=== PATIENT | female | born 1980 | race Caucasian/White ===

== ENCOUNTER 2018-06-23 13:03 | Emergency (ER) | payer SELFPAY ==
[~2018-06-23] VITALS: Ht 147.3 cm; Wt 67.3 kg
[2018-06-23] MEDS ORDERED: PREN-155 PO (13:16)
[2018-06-23 14:57] LABS: BASOPHILS % (AUTO) 0.6 % (0.0-2.0); EOSINOPHILS % (AUTO) 1.4 % (1.0-6.0); HEMATOCRIT 37.5 % (36-46); HEMOGLOBIN 11.7 g/dL (12.0-16.0); LYMPHOCYTES # (AUTO) 2.5 K/uL (1.0-4.8); LYMPHOCYTES % (AUTO) 27.5 % (22.0-44.0); MEAN CORPUSCULAR HEMOGLOBIN 20.7 pg (26.0-34.0); MEAN CORPUSCULAR HGB CONC 31.2 G/dL (31.0-37.0); MEAN CORPUSCULAR VOLUME 66 fL (80-100); MONOCYTES # (AUTO) 0.6 K/uL (0.1-1.0); MONOCYTES % (AUTO) 6.3 % (2.0-9.0); NEUTROPHILS # (AUTO) 5.8 K/uL (1.8-7.7); NEUTROPHILS % (AUTO) 64.2 % (40.0-70.0); PLATELET COUNT (AUTO) 300 K/uL (150-450); RED BLOOD CELL COUNT(AUTO) 5.64 MIL/uL (4.00-5.20); RED CELL DISTRIBUTION WIDTH 16.2 % (11.5-14.5)
[2018-06-23 15:15] LABS: ANION GAP 10 mmol/L (8-16); CALCIUM, TOTAL 9.1 mg/dL (8.8-10.5); CARBON DIOXIDE 25 mmol/L (22-29); CHLORIDE 99 mmol/L (98-107); CREATININE 0.64 mg/dL (0.60-1.30); GLOMERULAR FILTR. RATE CALC > 60 mL/min (>60); GLUCOSE,RANDOM 284 mg/dL (70-110); POTASSIUM 3.6 mmol/L (3.5-5.1); SODIUM SERUM 134 mmol/L (136-145); UREA NITROGEN, BLOOD 9 mg/dL (7-18)
[2018-06-23 15:44] LABS: ALANINE AMINOTRANSFERASE 30 U/L (12-78); ALBUMIN 3.8 g/dL (3.4-5.0); ALKALINE PHOSPHATASE 92 U/L (46-116); ASPARTATE AMINOTRANSFERASE 16 U/L (15-37); BILIRUBIN,TOTAL 0.2 mg/dL (0.1-1.0); HCG,QUANTITATIVE 33139 mIU/mL (0-6); TOTAL PROTEIN, SERUM 7.9 g/dL (6.4-8.2)
[2018-06-23 17:40] VITALS: BP 111/75
== END 2018-06-23 17:40 | disposition home or self-care (01) ==
LOC: EMS 13:04
DX: O20.0 Threatened abortion (principal); Z3A.01 Less than 8 weeks gestation of pregnancy
CPT/HCPCS: 76801; 76817; 86901

== ENCOUNTER 2022-04-30 16:46 | Emergency (ER) | payer MEDICAID ==
[~2022-04-30] VITALS: Ht 152.4 cm; Wt 65.9 kg
[2022-04-30] VITALS (7 sets, daily range): BP systolic 103–137; BP diastolic 64–81
[~2022-04-30 16:46] MED LIST: PREN-155 PO
[2022-04-30] MEDS ORDERED: LEVORA PO (17:04)
[2022-04-30] MEDS ORDERED: METF-1211 PO (17:04)
[2022-04-30] MEDS ORDERED: ASCO500T20 PO (17:04)
[2022-04-30] MEDS ORDERED: SITA100 PO (17:04)
[2022-04-30] MEDS ORDERED: FERR-82 PO ×2 (17:04)
[2022-04-30 18:18] LABS: BASOPHILS % (AUTO) 0.6 % (0.0-2.0); EOSINOPHILS % (AUTO) 2.3 % (1.0-6.0); HEMATOCRIT 27.3 % (36-46); HEMOGLOBIN 7.8 g/dL (12.0-16.0); LYMPHOCYTES # (AUTO) 2.2 K/uL (1.0-4.8); LYMPHOCYTES % (AUTO) 31.2 % (22.0-44.0); MEAN CORPUSCULAR HEMOGLOBIN 15.7 pg (26.0-34.0); MEAN CORPUSCULAR HGB CONC 28.4 G/dL (31.0-37.0); MEAN CORPUSCULAR VOLUME 55 fL (80-100); MONOCYTES # (AUTO) 0.5 K/uL (0.1-1.0); MONOCYTES % (AUTO) 7.4 % (2.0-9.0); NEUTROPHILS # (AUTO) 4.1 K/uL (1.8-7.7); NEUTROPHILS % (AUTO) 58.5 % (40.0-70.0); PLATELET COUNT (AUTO) 297 K/uL (150-450); RED BLOOD CELL COUNT(AUTO) 4.93 MIL/uL (4.00-5.20); RED CELL DISTRIBUTION WIDTH 18.6 % (11.5-14.5)
[2022-04-30 18:27] LABS: ANION GAP 6 mmol/L (8-16); CALCIUM, TOTAL 8.8 mg/dL (8.8-10.5); CARBON DIOXIDE 26 mmol/L (22-29); CHLORIDE 102 mmol/L (98-107); CREATININE 0.46 mg/dL (0.60-1.30); GLUCOSE,RANDOM 213 mg/dL (70-110); POTASSIUM 3.2 mmol/L (3.5-5.1); SODIUM SERUM 134 mmol/L (136-145); UREA NITROGEN, BLOOD 9 mg/dL (7-18)
[2022-04-30 18:32] LABS: ALANINE AMINOTRANSFERASE 14 U/L (12-78); ALBUMIN 3.5 g/dL (3.4-5.0); ALKALINE PHOSPHATASE 76 U/L (46-116); ASPARTATE AMINOTRANSFERASE 9 U/L (15-37); BILIRUBIN,TOTAL 0.3 mg/dL (0.1-1.0); TOTAL PROTEIN, SERUM 7.9 g/dL (6.4-8.2)
[2022-04-30 18:33] LABS: GLOMERULAR FILTR. RATE CALC > 60 mL/min (>60)
[2022-04-30 18:36] LABS: B-TYPE NATRIURETIC PEPTIDE 10 pg/mL (0-100)
[2022-04-30 18:42] LABS: PLATELET MORPHOLOGY COMMENT LARGE PLTS PRESENT
[2022-04-30 22:49] LABS: BASOPHILS % (AUTO) 0.5 % (0.0-2.0); EOSINOPHILS % (AUTO) 2.5 % (1.0-6.0); HEMATOCRIT 28.2 % (36-46); HEMOGLOBIN 8.2 g/dL (12.0-16.0); LYMPHOCYTES # (AUTO) 2.4 K/uL (1.0-4.8); LYMPHOCYTES % (AUTO) 33.5 % (22.0-44.0); MEAN CORPUSCULAR HEMOGLOBIN 17.1 pg (26.0-34.0); MEAN CORPUSCULAR HGB CONC 29.2 G/dL (31.0-37.0); MEAN CORPUSCULAR VOLUME 59 fL (80-100); MONOCYTES # (AUTO) 0.6 K/uL (0.1-1.0); MONOCYTES % (AUTO) 8.8 % (2.0-9.0); NEUTROPHILS # (AUTO) 3.9 K/uL (1.8-7.7); NEUTROPHILS % (AUTO) 54.7 % (40.0-70.0); PLATELET COUNT (AUTO) 275 K/uL (150-450); RED BLOOD CELL COUNT(AUTO) 4.81 MIL/uL (4.00-5.20); RED CELL DISTRIBUTION WIDTH 19.3 % (11.5-14.5)
[2022-04-30 23:07] LABS: PLATELET MORPHOLOGY COMMENT LARGE PLTS PRESENT
== END 2022-04-30 23:07 | disposition home or self-care (01) ==
LOC: EMS 16:58
DX: E87.71 Transfusion associated circulatory overload (principal); E11.9 Type 2 diabetes mellitus without complications; E87.6 Hypokalemia; R53.83 Other fatigue; D64.9 Anemia, unspecified
CPT/HCPCS: 99291; 36430; 80053; 82962; 83880; 84484; 85025; 85610; 85730; 86850; 86900; 86901; 86923; 71045; 93005; 36415; P9016

== ENCOUNTER 2022-09-03 08:00 | Emergency (ER) | payer MEDICAID ==
[~2022-09-03] VITALS: Ht 160 cm; Wt 65.5 kg
[~2022-09-03 08:00] MED LIST changes: +ASCO500T20 PO; +FERR-82 PO; +LEVORA PO; +METF-1211 PO; -PREN-155 PO; +SITA100 PO
[2022-09-03 08:10] VITALS: BP 136/65
[2022-09-03 09:38] LABS: BASOPHILS % (AUTO) 0.6 % (0.0-2.0); EOSINOPHILS % (AUTO) 1.6 % (1.0-6.0); HEMATOCRIT 39.6 % (36-46); HEMOGLOBIN 12.7 g/dL (12.0-16.0); LYMPHOCYTES # (AUTO) 1.6 K/uL (1.0-4.8); LYMPHOCYTES % (AUTO) 25.7 % (22.0-44.0); MEAN CORPUSCULAR HEMOGLOBIN 23.7 pg (26.0-34.0); MEAN CORPUSCULAR HGB CONC 32.1 G/dL (31.0-37.0); MEAN CORPUSCULAR VOLUME 74 fL (80-100); MONOCYTES # (AUTO) 0.4 K/uL (0.1-1.0); MONOCYTES % (AUTO) 5.9 % (2.0-9.0); NEUTROPHILS # (AUTO) 4.1 K/uL (1.8-7.7); NEUTROPHILS % (AUTO) 66.2 % (40.0-70.0); PLATELET COUNT (AUTO) 279 K/uL (150-450); RED BLOOD CELL COUNT(AUTO) 5.37 MIL/uL (4.00-5.20); RED CELL DISTRIBUTION WIDTH 16.7 % (11.5-14.5)
[2022-09-03 09:46] LABS: ANION GAP 8 mmol/L (8-16); CALCIUM, TOTAL 9.1 mg/dL (8.8-10.5); CARBON DIOXIDE 26 mmol/L (22-29); CHLORIDE 102 mmol/L (98-107); CREATININE 0.64 mg/dL (0.60-1.30); GLOMERULAR FILTR. RATE CALC > 60 mL/min (>60); GLUCOSE,RANDOM 203 mg/dL (70-110); POTASSIUM 3.7 mmol/L (3.5-5.1); SODIUM SERUM 136 mmol/L (136-145); UREA NITROGEN, BLOOD 16 mg/dL (7-18)
[2022-09-03 09:59] LABS: ALANINE AMINOTRANSFERASE 20 U/L (12-78); ALKALINE PHOSPHATASE 94 U/L (46-116); ASPARTATE AMINOTRANSFERASE 15 U/L (15-37); BILIRUBIN,TOTAL 0.3 mg/dL (0.1-1.0); HCG,QUANTITATIVE 2 mIU/mL (0-6); TOTAL PROTEIN, SERUM 8.2 g/dL (6.4-8.2)
== END 2022-09-03 14:33 | disposition home or self-care (01) ==
LOC: EMS 08:04
DX: N92.1 Excessive and frequent menstruation with irregular cycle (principal); E11.9 Type 2 diabetes mellitus without complications; Z98.890 Other specified postprocedural states
CPT/HCPCS: 76830; 76856; 80053; 84702; 85025; 86850; 86900; 86901; 99284

== ENCOUNTER 2023-08-19 16:12 | Emergency (ER) | payer MEDICAID, OTHER ==
[~2023-08-19] VITALS: Ht 154.9 cm; Wt 75.0 kg
[2023-08-19] MEDS ORDERED: ATOR10TA69 PO (16:34)
[2023-08-19] MEDS ORDERED: LISI2.5T13 PO (16:34)
[2023-08-19] MEDS ORDERED: METF-446 PO (16:34)
[2023-08-19] MEDS ORDERED: EMPA25TA3 PO (16:34)
[2023-08-19] MEDS ORDERED: SEMA1PEN3 SQ (16:34)
[2023-08-19 16:38] VITALS: TEMP 98.2
[2023-08-19 17:49] LABS: BASOPHILS % (AUTO) 0.7 % (0.0-2.0); EOSINOPHILS % (AUTO) 3.5 % (1.0-6.0); HEMATOCRIT 31.5 % (36-46); HEMOGLOBIN 9.6 g/dL (12.0-16.0); LYMPHOCYTES # (AUTO) 2.2 K/uL (1.0-4.8); LYMPHOCYTES % (AUTO) 33.5 % (22.0-44.0); MEAN CORPUSCULAR HEMOGLOBIN 19.3 pg (26.0-34.0); MEAN CORPUSCULAR HGB CONC 30.5 G/dL (31.0-37.0); MEAN CORPUSCULAR VOLUME 63 fL (80-100); MONOCYTES # (AUTO) 0.4 K/uL (0.1-1.0); MONOCYTES % (AUTO) 6.7 % (2.0-9.0); NEUTROPHILS # (AUTO) 3.7 K/uL (1.8-7.7); NEUTROPHILS % (AUTO) 55.6 % (40.0-70.0); PLATELET COUNT (AUTO) 343 K/uL (150-450); RED BLOOD CELL COUNT(AUTO) 4.98 MIL/uL (4.00-5.20); RED CELL DISTRIBUTION WIDTH 19.3 % (11.5-14.5); WHITE BLOOD COUNT (AUTO) 6.6 K/uL (4.5-11.0)
[2023-08-19 17:51] LABS: ANION GAP 10 mmol/L (8-16); CALCIUM, TOTAL 9.3 mg/dL (8.8-10.5); CARBON DIOXIDE 25 mmol/L (22-29); CHLORIDE 102 mmol/L (98-107); CREATININE 0.49 mg/dL (0.60-1.30); GLOMERULAR FILTR. RATE CALC > 60 mL/min (>60); GLUCOSE,RANDOM 140 mg/dL (70-110); POTASSIUM 3.5 mmol/L (3.5-5.1); SODIUM SERUM 137 mmol/L (136-145); UREA NITROGEN, BLOOD 16 mg/dL (7-18)
[2023-08-19 17:54] LABS: PROTHROMBIN TIME 10.7 SEC (9.4-11.6)
[2023-08-19 17:55] LABS: ALANINE AMINOTRANSFERASE 15 U/L (12-78); ALBUMIN 3.5 g/dL (3.4-5.0); ALKALINE PHOSPHATASE 82 U/L (46-116); ASPARTATE AMINOTRANSFERASE 13 U/L (15-37); BILIRUBIN,TOTAL 0.3 mg/dL (0.1-1.0); TOTAL PROTEIN, SERUM 7.7 g/dL (6.4-8.2)
[2023-08-19 18:27] LABS: RBC MORPHOLOGY COMMENT ABNORMAL RBC MORPH
[2023-08-19] MEDS: SODIUM CHLORIDE 0.9% 1,000 ML IV ONE (19:11)
[2023-08-19] MEDS: METOCLOPRAMIDE HCL 5 MG/ML 2 ML VIAL IVP ONE (19:13)
[2023-08-19] MEDS: DiphenhydrAMINE HCL 50 MG/ML VIAL IVP ONE (19:14)
[2023-08-19] MEDS: KETOROLAC TROMETHAMINE 30 MG/ML VIAL IVP ONE (19:14)
[2023-08-19 21:29] VITALS: BP 110/75; PULSE 72; RESP 15
== END 2023-08-19 22:01 | disposition home or self-care (01) ==
LOC: EMS 16:17
DX: N92.1 Excessive and frequent menstruation with irregular cycle (principal); R51.9 Headache, unspecified; E11.9 Type 2 diabetes mellitus without complications; Z98.890 Other specified postprocedural states
CPT/HCPCS: 99284; 96374; 96375; 96361; 80053; 85025; 85610; 85730; 86850; 86900; 86901; 36415; 93005; J1200; J1885; J2765; J7030

== ENCOUNTER 2025-05-17 16:10 | Emergency (ER) | payer MEDICAID ==
[~2025-05-17] VITALS: Ht 160 cm; Wt 68.2 kg
[~2025-05-17 16:10] MED LIST changes: -ASCO500T20 PO; +ATOR10TA69 PO; +DOXY-354 PO; +EMPA25TA3 PO; -FERR-82 PO; +IBUP-1492 PO; -LEVORA PO; +LISI2.5T13 PO; -METF-1211 PO; +METF-446 PO; +SEMA1PEN3 SQ; -SITA100 PO
[2025-05-17 22:09] VITALS: BP 123/69; PULSE 69; RESP 18; TEMP 98.3; O2SAT 99
== END 2025-05-17 22:31 | disposition home or self-care (01) ==
LOC: EMS 16:16
DX: N76.4 Abscess of vulva (principal); E11.9 Type 2 diabetes mellitus without complications; E78.00 Pure hypercholesterolemia, unspecified; I10 Essential (primary) hypertension; Z48.817 Encounter for surgical aftercare following surgery on the skin and subcutaneous tissue; Z79.85 Long-term (current) use of injectable non-insulin antidiabetic drugs; Z79.899 Other long term (current) drug therapy
CPT/HCPCS: 99282; Z7502